=== PATIENT | female | born 1970 | race Caucasian/White ===

== ENCOUNTER 2018-09-05 13:27 | Emergency (ER) | payer OTHER ==
[~2018-09-05] VITALS: Ht 154.9 cm; Wt 87.0 kg
[2018-09-05 13:35] VITALS: Ht 154.9 cm; Wt 87.0 kg
[2018-09-05] MEDS ORDERED: ALBUTEROL 0.083% (NEB) 2.5 MG/3 ML AMP HHN STA (13:46)
[2018-09-05] MEDS ORDERED: predniSONE 20 MG TAB PO ONE (14:00)
[2018-09-05] MEDS ORDERED: ACETAMINOPHEN 325 MG TAB PO ONE (14:00)
[2018-09-05] MEDS ORDERED: ALBU18HF INHALATION (14:28)
[2018-09-05] MEDS ORDERED: NEOM28OI2 TP (14:28)
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
[2018-09-05 15:04] VITALS: BP 133/75; PULSE 89; RESP 16
== END 2018-09-05 15:06 | disposition home or self-care (01) ==
LOC: FTE 13:27
DX: R06.02 Shortness of breath (principal)
CPT/HCPCS: 94664; J7512; Z7502; Z7610